=== PATIENT | male | born 1955 | race Two or more races ===

== ENCOUNTER 2021-07-30 17:46 | Emergency (ER) | payer MEDICAID, OTHER ==
[~2021-07-30] VITALS: Ht 160 cm; Wt 52.2 kg
[2021-07-30 18:57] VITALS: BP 131/74
[2021-07-30] MEDS ORDERED: FLUORESCEIN SOD OPTH TEST STRIP RIGHTEYE ONE (19:00)
[2021-07-30] MEDS ORDERED: TETRACAINE HCL 0.5% OPTH(EYE) SOLN 4ML RIGHTEYE ONE (19:00)
== END 2021-07-30 19:18 | disposition home or self-care (01) ==
LOC: ER 17:46
DX: H57.11 Ocular pain, right eye (principal)

== ENCOUNTER 2023-09-29 11:13 | Emergency (ER) | payer OTHER, MEDICAID ==
[~2023-09-29] VITALS: Ht 160 cm; Wt 46.0 kg
[2023-09-29 12:12] VITALS: BP 143/82; PULSE 87; RESP 16; TEMP 97.5; O2SAT 98
[2023-09-29] MEDS ORDERED: ERY05OO OP (12:28)
== END 2023-09-29 12:31 | disposition home or self-care (01) ==
LOC: ER 11:13
DX: H57.11 Ocular pain, right eye (principal)